=== PATIENT | female | born 1990 | race Hispanic/Latino ===

== ENCOUNTER 2017-11-26 19:05 | Emergency (ER) | payer OTHER ==
[2017-11-26 20:55] LABS: Absolute Lymphocytes (CBC) 1.8 K/uL (0.7-4.9); Absolute Monocytes 0.8 K/uL (0.1-1.3); Absolute Neutrophil 7.8 K/uL (1.8-8.0); Basophils % 0.5 % (0-1.3); Eosinophils % 2.2 % (0-4.4); Hematocrit 40.7 % (36.0-45.0); MCH 32.9 pg (27.0-35.0); MCV 95.9 fL (80-100); MPV 7.5 fL (7.6-11.3); Monocytes % 7.1 % (3.3-12.3); RBC Red Blood Cell Count 4.24 M/uL (3.86-4.86)
[2017-11-26 20:57] LABS: Protime INR 1.04
[2017-11-26 21:32] LABS: Barbiturates NEGATIVE (NEGATIVE); Benzodiazepines NEGATIVE (NEGATIVE); Cocaine NEGATIVE (NEGATIVE); METHAMPHETAM NEGATIVE (NEGATIVE); Methadone NEGATIVE (NEGATIVE); Opiates NEGATIVE (NEGATIVE); Phencyclidine NEGATIVE (NEGATIVE); THC Cannibis NEGATIVE (NEGATIVE)
[2017-11-26 21:48] LABS: ALT/SGPT 21 U/L (12-78); AST/SGOT 11 U/L (15-37); Albumin 3.8 g/dL (3.4-5.0); Alcohol Serum/Plasma 8 mg/dL (<3); Alkaline Phosphatase 59 U/L (45-117); BUN Blood Urea Nitrogen 13 mg/dL (7-18); Bicarbonate 25 mmol/L (21-32); Bilirubin Direct < 0.1 mg/dL (0-0.2); Bilirubin Total 0.3 mg/dL (0.2-1.0); Glucose Level 113 mg/dL (74-106); Potassium 3.6 mmol/L (3.5-5.1); Protein, Total 8.4 g/dL (6.4-8.2); Sodium Level 141 mmol/L (136-145)
[2017-11-26 22:11] LABS: Urine Blood 3+ (NEG); Urine Glucose NEGATIVE (NEG); Urine Protein 1+ (NEG); Urine Specific Gravity >1.030 (1.005-1.030); Urine pH 5.5 (5.0-7.0)
--- NOTE | 2017-11-27 00:30 | ER ---
Nurse's Notes [facility] Name: Dawn Aquino Age: 27 yrs Sex: Female : 1990 Arrival Date: 11/26/2017 Time: 19:09 Bed 16 Private MD: Diagnosis: Depression Presentation: 11/26 19:20 Presenting complaint: Patient states: "I went to see my therapist today and she said I aj1 have a lot of anxiety and I've been having really bad and dark thoughts that started on Wednesday. I'm having suicidal thoughts, they're less today but they're still there. I used to take Prozac so I think I just need that" Denies a plan at this time. Transition of care: patient was not received from another setting of care. Onset of symptoms was November 26, 2017. Risk Assessment: Do you want to hurt yourself or someone else? Patient reports desire/thoughts of hurting themselves or someone else. Provider notified. Initial Sepsis Screen: Does the patient meet any 2 criteria? No. Patient's initial sepsis screen is negative. Does the patient have a suspected source of infection? No. Patient's initial sepsis screen is negative. Care prior to arrival: None. 19:20 Method Of Arrival: Ambulatory aj1 19:20 Acuity: GABY 2 aj1 Triage Assessment: 19:26 General: Appears in no apparent distress. comfortable, Behavior is cooperative, aj1 anxious. Pain: Complains of pain in right taoist and left taoist Pain currently is 5 out of 10 on a pain scale. Neuro: Level of Consciousness is awake, alert, obeys commands. Cardiovascular: Patient's skin is warm and dry. Respiratory: Airway is patent Respiratory effort is even, unlabored, Respiratory pattern is regular, symmetrical. Derm: Skin is pink, warm \\T\\ dry. normal. 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 - Social history:: Smoking status: Patient/guardian denies using tobacco. - Ebola Screening: : Patient denies travel to an Ebola-affected area in the 21 days before illness onset. Screenin:45 Abuse screen: Denies threats or abuse. Denies injuries from another. Nutritional bp screening: No deficits noted. Tuberculosis screening: No symptoms or risk factors identified. Fall Risk None identified. Assessment: 19:45 General: Appears in no apparent distress. comfortable, Behavior is cooperative, bp appropriate for age, anxious. General: 27YO HF P/W CHRONIC INTERMITTENT SUICIDAL IDEATION, DIRECTED TO ER BY PERSONAL THERAPIST. PT DENIES PLAN OR GESTURE. Pain: Denies pain. Neuro: Level of Consciousness is awake, alert, obeys commands, Oriented to person, place, time, situation, Appropriate for age. Cardiovascular: No deficits noted. Respiratory: Airway is patent Respiratory effort is even, unlabored, Respiratory pattern is regular, symmetrical. GI: No signs and/or symptoms were reported involving the gastrointestinal system. : No signs and/or symptoms were reported regarding the genitourinary system. EENT: No deficits noted. Derm: No deficits noted. Musculoskeletal: Circulation, motion, and sensation intact. Range of motion: intact in all extremities. 23:30 Reassessment: PT MEDICALLY CLEAR. FAMILY AND SITTER AT B/S. [facility] ER EVAL PENDING. bp 11/27 00:51 Reassessment: PT CLEARED FOR D/C AND OUTPATIENT THERAPY, D/C ON HOLD FOR FURTHER MEDS. bp 01:15 Reassessment: PT D/C HOME AMBULATORY WITH FAMILY, DX WITH DEPRESSION, TO F/U WITH [facility]. Psych: 11/26 19:27 Subjective: Patient's mood is sad, Hallucinations are denied Having thoughts of aj1 suicide. Objective: Patient is cooperative, Speech is normal. Suicide Risk Assessment: Sad Person Scale: Sex of patient: Female: Score 0 points. Age of patient: Score 1 point if patient 15-34. Depression: Score 1 point if signs of depression are present. Previous Attempt: Score 0 point if patient has not previously attempted suicide. Substance Abuse: Score 0 point if patient does not abuse alcohol or drugs. Rational Thinking: Score 0 point if patient has rational thinking. Social Support: Score 0 if social support is present/available. Organized Plan: Score 0 if patient did not have an organized plan in place. Relationship: Score 0 point if patient has a spouse or domestic partner. Chronic Sickness: Score 0 point if patient does not have a chronic illness, debilitating, or severe disorder. TOTAL POINTS: If total points are 0-2, proposed clinical action is to send home with follow-up. Pt denies substance abuse. 19:45 Interventions: Removed personal items and placed in bag. Patient placed in hospital bp gown. Urine collected and sent for urine drug test. BELONGINGS TO FAMILY. 19:45 Commitment: NONE AT THIS TIME. bp Vital Signs: 19:26 BP 143 / 94; Pulse 112; Resp 20; Temp 98.1; Pulse Ox 97% on R/A; Weight 80.74 kg (R); aj1 Height 5 ft. 2 in. (157.48 cm) (R); 23:48 BP 123 / 77; Pulse 97; Resp 14; Pulse Ox 96% ; bp 19:26 Body Mass Index 32.56 (80.74 kg, 157.48 cm) aj1 ED Course: 19:09 Patient arrived in ED. as 19:24 Triage completed. aj1 19:26 Arm band placed on. aj1 19:31 Robert Gutierrez, MARY BETH is Primary Nurse. bp 19:32 Regina Linares FNP-C is PHCP. snw 19:32 Alhaji Weaver MD is Attending Physician. snw 19:45 Safety Checks: Personal items have been removed. The door is open or patient has been bp placed in a hallway bed/chair. A family member and/or friend is present and encouraged to stay. Sitter not present at this time Other: FAMILY TOOK POSSESSION OF PT BELONGINGS. 20:00 Safety Checks: Personal items have been removed. The door is open or patient has been bp placed in a hallway bed/chair. A family member and/or friend is present and encouraged to stay. Sitter not present at this time. 20:15 Safety Checks: Personal items have been removed. The door is open or patient has been bp placed in a hallway bed/chair. A family member and/or friend is present and encouraged to stay. 20:20 Inserted saline lock: 20 gauge in left forearm, using aseptic technique. Blood bp collected. 20:30 Safety Checks: Personal items have been removed. The door is open or patient has been bp placed in a hallway bed/chair. A family member and/or friend is present and encouraged to stay. Sitter present at this time. 20:44 Safety checks: Items removed: Door open/sign placed on door: Family/friend present: cs8 Sitter present:. Patient has correct armband on for positive identification. Allergy band placed. Fall risk band placed. Placed in gown. Bed in low position. Call light in reach. Side rails up X 1. 20:45 Safety Checks: Personal items have been removed. The door is open or patient has been bp placed in a hallway bed/chair. A family member and/or friend is present and encouraged to stay. Sitter present at this time. 21:00 Safety Checks: Personal items have been removed. The door is open or patient has been bp placed in a hallway bed/chair. A family member and/or friend is present and encouraged to stay. Sitter present at this time. 21:05 Safety checks: Items removed: Door open/sign placed on door: yes. Family/friend cs8 present: yes. Sitter present: Yes. Patient has correct armband on for positive identification. Allergy band placed. Fall risk band placed. Placed in gown. Bed in low position. Side rails up X 1. Sitter at bedside. 21:15 Safety Checks: Personal items have been removed. The door is open or patient has been bp placed in a hallway bed/chair. A family member and/or friend is present and encouraged to stay. Sitter present at this time. 21:15 Safety checks: Items removed: yes. Door open/sign placed on door: yes. Family/friend cs8 present: yes. Sitter present: Yes. Patient has correct armband on for positive identification. Allergy band placed. Fall risk band placed. Placed in gown. Bed in low position. Side rails up X 1. Sitter at bedside. 21:30 Safety Checks: Personal items have been removed. The door is open or patient has been bp placed in a hallway bed/chair. A family member and/or friend is present and encouraged to stay. Sitter present at this time. 21:33 Safety checks: Items removed: yes. Door open/sign placed on door: yes. Family/friend cs8 present: yes. Sitter present:. Patient has correct armband on for positive identification. Allergy band placed. Fall risk band placed. Placed in gown. Bed in low position. Side rails up X 1. 21:45 Safety Checks: Personal items have been removed. The door is open or patient has been bp placed in a hallway bed/chair. A family member and/or friend is present and encouraged to stay. Sitter present at this time. 21:45 Safety checks: Items removed: yes. Door open/sign placed on door: yes. Family/friend cs8 present: no. Sitter present: Yes. Patient has correct armband on for positive identification. Placed in gown. Bed in low position. Side rails up X 1. Diet: Patient given snack. Tolerated well. 22:00 Safety Checks: Personal items have been removed. The door is open or patient has been bp placed in a hallway bed/chair. A family member and/or friend is present and encouraged to stay. Sitter present at this time. 22:00 Safety checks: Items removed: yes. Door open/sign placed on door: yes. Sitter present: cs8 Yes. Patient has correct armband on for positive identification. 22:15 Safety Checks: Personal items have been removed. The door is open or patient has been bp placed in a hallway bed/chair. A family member and/or friend is present and encouraged to stay. Sitter present at this time. 22:15 Safety checks: Items removed: yes. Door open/sign placed on door: yes. Sitter present: cs8 Yes. Patient has correct armband on for positive identification. Placed in gown. Bed in low position. Side rails up X 1. Sitter at bedside. 22:30 Safety Checks: Personal items have been removed. The door is open or patient has been bp placed in a hallway bed/chair. A family member and/or friend is present and encouraged to stay. Sitter present at this time. 22:30 Safety checks: Items removed: yes. Door open/sign placed on door: yes. Sitter present: cs8 Yes. Patient has correct armband on for positive identification. Placed in gown. Bed in low position. Side rails up X 1. 22:45 Safety Checks: Personal items have been removed. The door is open or patient has been bp placed in a hallway bed/chair. A family member and/or friend is present and encouraged to stay. Sitter present at this time. 22:45 Safety checks: Items removed: yes. Door open/sign placed on door: yes. Sitter present: cs8 Yes. Patient has correct armband on for positive identification. Placed in gown. Bed in low position. Side rails up X 1. pt lying in bed resting, no further needs. 23:00 Safety Checks: Personal items have been removed. The door is open or patient has been bp placed in a hallway bed/chair. A family member and/or friend is present and encouraged to stay. Sitter present at this time. 23:00 Safety checks: Items removed: yes. Door open/sign placed on door: yes. Sitter present: cs8 Yes. Patient has correct armband on for positive identification. Placed in gown. Bed in low position. Call light in reach. pt. lying in bed resting, no further needs at this time. 23:15 Safety Checks: Personal items have been removed. The door is open or patient has been bp placed in a hallway bed/chair. A family member and/or friend is present and encouraged to stay. Sitter present at this time. 23:15 Safety checks: Items removed: yes. Door open/sign placed on door: yes. Family/friend cs8 present: no. Sitter present: Yes. Patient has correct armband on for positive identification. Bed in low position. Call light in reach. Side rails up X 1. 23:30 Safety Checks: Personal items have been removed. The door is open or patient has been bp placed in a hallway bed/chair. A family member and/or friend is present and encouraged to stay. Sitter present at this time. 23:30 Safety checks: Items removed: yes. Door open/sign placed on door: yes. Family/friend cs8 present: yes. Sitter present:. Patient has correct armband on for positive identification. Placed in gown. Bed in low position. Side rails up X 1. 23:45 Safety Checks: Personal items have been removed. The door is open or patient has been bp placed in a hallway bed/chair. A family member and/or friend is present and encouraged to stay. Sitter present at this time. 23:45 Safety checks: Items removed: yes. Door open/sign placed on door: yes. Family/friend cs8 present: yes. Sitter present: Yes. Patient has correct armband on for positive identification. Placed in gown. Bed in low position. Side rails up X 1. 11/27 00:00 Safety Checks: Personal items have been removed. The door is open or patient has been bp placed in a hallway bed/chair. A family member and/or friend is present and encouraged to stay. Sitter present at this time. 00:00 Safety checks: Items removed: yes. Door open/sign placed on door: yes. Sitter present: cs8 Yes. Patient has correct armband on for positive identification. Placed in gown. Bed in low position. Side rails up X 1. Lights dimmed. vital signs taken. 00:15 Safety Checks: Personal items have been removed. The door is open or patient has been bp placed in a hallway bed/chair. A family member and/or friend is present and encouraged to stay. Sitter present at this time. 00:15 Safety checks: Items removed: yes. Door open/sign placed on door: yes. Sitter present: cs8 Yes. Patient has correct armband on for positive identification. Placed in gown. Bed in low position. Side rails up X 1. Lights dimmed. Warm blanket given. Pillow given. 00:30 Safety Checks: Personal items have been removed. The door is open or patient has been bp placed in a hallway bed/chair. A family member and/or friend is present and encouraged to stay. Sitter present at this time. 00:30 Safety checks: Items removed: yes. Door open/sign placed on door: yes. Family/friend cs8 present: yes. Sitter present: Yes. Patient has correct armband on for positive identification. Placed in gown. Bed in low position. Side rails up X 1. 00:45 Safety Checks: Personal items have been removed. The door is open or patient has been bp placed in a hallway bed/chair. A family member and/or friend is present and encouraged to stay. Sitter present at this time. 00:45 Safety checks: Items removed: yes. Door open/sign placed on door: yes. Family/friend cs8 present: yes. Sitter present: Yes. Patient has correct armband on for positive identification. Placed in gown. Bed in low position. Side rails up X 1. 01:00 Safety Checks: Personal items have been removed. The door is open or patient has been bp placed in a hallway bed/chair. A family member and/or friend is present and encouraged to stay. Sitter present at this time. 01:00 Safety checks: Items removed: yes. Door open/sign placed on door: yes. Family/friend cs8 present: yes. Sitter present: Yes. Other: patient waiting for meds so she can be discharged. 01:15 Safety Checks: Personal items have been removed. The door is open or patient has been bp placed in a hallway bed/chair. A family member and/or friend is present and encouraged to stay. Sitter present at this time. 01:29 No provider procedures requiring assistance completed. IV discontinued, intact, bp bleeding controlled, No redness/swelling at site. Pressure dressing applied. Administered Medications: 01:15 Drug: PROzac 10 mg Route: PO; bp 01:28 Follow up: Response: Medication administered at discharge. bp 01:15 Drug: Tylenol 1000 mg Route: PO; bp 01:28 Follow up: Response: Medication administered at discharge. bp Outcome: 00:29 Discharge ordered by . edgar 01:29 Discharged to home ambulatory, with family. bp 01:29 Condition: stable 01:29 Discharge instructions given to patient, family, Instructed on discharge instructions, follow up and referral plans. medication usage, Demonstrated understanding of instructions, follow-up care, medications, Prescriptions given X 1. 01:34 Patient left the ED. bp Signatures: Mary Ann Salazar RN RN aj1 Alhaji Weaver MD MD pkl Therrien, Shelly, CHIP MIXING MACHINE OPERATOR-C CHIP MIXING MACHINE OPERATOR-Kerri Childs Brian, RN RN bp Yulisa Buchanan cs8 Corrections: (The following items were deleted from the chart) 11/26 21:20 19:20 Risk Assessment: Do you want to hurt yourself or someone else? Patient reports no aj1 desire to harm self or others. aj1 21:33 19:45 Safety Checks: Personal items have been removed. The door is open or patient has bp been placed in a hallway bed/chair. A family member and/or friend is present and encouraged to stay. Sitter not present at this time bp
--- NOTE | 2017-11-27 00:30 | EDPHYS ---
Physician Documentation [facility] Name: Dawn Aquino Age: 27 yrs Sex: Female : 1990 Arrival Date: 11/26/2017 Time: 19:09 Bed 16 Private MD: ED Physician Alhaji Weaver HPI: 11/26 22:11 This 27 yrs old Female presents to ER via Ambulatory with complaints of snw Suicidal Ideation, Anxiety, Depression. 22:11 The patient presents to the emergency department with depression, suicide ideation, but snw the patient has no formulated plan. Onset: The symptoms/episode began/occurred suddenly, 1 week(s) ago, and became worse today. Past psychiatric history: Prior diagnosis: depression, Psychiatric medications include: Prozac, the patient has not had a prior suicide gesture, the patient does not have a previous inpatient psychiatric history, the patient's last psychiatric treatment was 1 year(s) ago. Associated signs and symptoms: Pertinent positives; sadness, wants help because everything went south so suddenly. States something on the internet set her off.. The patient has not experienced similar symptoms in the past. The patient has not recently seen a physician. Saw Dr. Gomes for similar symptoms one year ago, took Prozac x 5 months with some improvement. 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 - Social history:: Smoking status: Patient/guardian denies using tobacco. - Ebola Screening: : Patient denies travel to an Ebola-affected area in the 21 days before illness onset. ROS: 22:11 Eyes: Negative for injury, pain, redness, and discharge, ENT: Negative for injury, snw pain, and discharge, Neck: Negative for injury, pain, and swelling, Cardiovascular: Negative for chest pain, palpitations, and edema, Respiratory: Negative for shortness of breath, cough, wheezing, and pleuritic chest pain, Abdomen/GI: Negative for abdominal pain, nausea, vomiting, diarrhea, and constipation, Back: Negative for injury and pain, : Negative for injury, bleeding, discharge, and swelling, MS/Extremity: Negative for injury and deformity, Skin: Negative for injury, rash, and discoloration, Neuro: Negative for headache, weakness, numbness, tingling, and seizure. 22:11 Constitutional: Positive for malaise. 22:11 Psych: Positive for depression, suicidal ideation. Exam: 22:11 Constitutional: This is a well developed, well nourished patient who is awake, alert, snw and in no acute distress. Head/Face: Normocephalic, atraumatic. Eyes: Pupils equal round and reactive to light, extra-ocular motions intact. Lids and lashes normal. Conjunctiva and sclera are non-icteric and not injected. Cornea within normal limits. Periorbital areas with no swelling, redness, or edema. ENT: Nares patent. No nasal discharge, no septal abnormalities noted. Tympanic membranes are normal and external auditory canals are clear. Oropharynx with no redness, swelling, or masses, exudates, or evidence of obstruction, uvula midline. Mucous membranes moist. Neck: Trachea midline, no thyromegaly or masses palpated, and no cervical lymphadenopathy. Supple, full range of motion without nuchal rigidity, or vertebral point tenderness. No Meningismus. Chest/axilla: Normal chest wall appearance and motion. Nontender with no deformity. No lesions are appreciated. Cardiovascular: Regular rate and rhythm with a normal S1 and S2. No gallops, murmurs, or rubs. Normal PMI, no JVD. No pulse deficits. Respiratory: Lungs have equal breath sounds bilaterally, clear to auscultation and percussion. No rales, rhonchi or wheezes noted. No increased work of breathing, no retractions or nasal flaring. Abdomen/GI: Soft, non-tender, with normal bowel sounds. No distension or tympany. No guarding or rebound. No evidence of tenderness throughout. Back: No spinal tenderness. No costovertebral tenderness. Full range of motion. Skin: Warm, dry with normal turgor. Normal color with no rashes, no lesions, and no evidence of cellulitis. MS/ Extremity: Pulses equal, no cyanosis. Neurovascular intact. Full, normal range of motion. Neuro: Awake and alert, GCS 15, oriented to person, place, time, and situation. Cranial nerves II-XII grossly intact. Motor strength 5/5 in all extremities. Sensory grossly intact. Cerebellar exam normal. Normal gait. 22:11 Psych: Behavior/mood is pleasant, cooperative, depressed, appropriate for age, Affect is calm, Oriented to person, place, time, Patient having thoughts of suicide. Denies suicidal plan. Judgement / Insight is normal. Delusions/hallucinations are not present. Vital Signs: 19:26 BP 143 / 94; Pulse 112; Resp 20; Temp 98.1; Pulse Ox 97% on R/A; Weight 80.74 kg (R); aj1 Height 5 ft. 2 in. (157.48 cm) (R); 23:48 BP 123 / 77; Pulse 97; Resp 14; Pulse Ox 96% ; bp 19:26 Body Mass Index 32.56 (80.74 kg, 157.48 cm) aj1 MDM: 19:35 Patient medically screened. snw 22:32 Data reviewed: vital signs, nurses notes. Data interpreted: Pulse oximetry: on room air snw is 97 %. Interpretation: normal. Counseling: I had a detailed discussion with the patient and/or guardian regarding: the historical points, exam findings, and any diagnostic results supporting the discharge/admit diagnosis, the presence of at least one elevated blood pressure reading (>120/80) during this emergency department visit, lab results. Awaiting: Psychiatric tractor distributor Boris Booth. 22:33 ED course: Pt tearful in intervals, supportive family at bedside. snw 22:34 Transition of care: After a detail discussion of the patient's case, care is snw transferred to Alhaij Weaver MD. 11/27 00:30 ED course: Patient evaluated by [facility] screener. Arrangement made for [facility] outpatient follow up.. 11/26 19:33 Order name: Acetaminophen; Complete Time: 22:49 snw 11/26 19:33 Order name: Basic Metabolic Panel; Complete Time: 22:49 snw 11/26 19:33 Order name: CBC with Diff; Complete Time: 21:06 snw 11/26 19:33 Order name: ETOH Level; Complete Time: 22:49 snw 11/26 19:33 Order name: Hepatic Function; Complete Time: 22:49 snw 11/26 19:33 Order name: PT-INR; Complete Time: 21:06 snw 11/26 19:33 Order name: Ptt, Activated; Complete Time: 21:06 snw 11/26 19:33 Order name: Salicylate; Complete Time: 21:34 snw 11/26 19:33 Order name: Urine Drug Screen; Complete Time: 21:34 snw 11/26 19:33 Order name: EKG; Complete Time: 19:33 snw 11/26 20:41 Order name: Urine Dipstick--Ancillary (enter results); Complete Time: 22:17 ms 11/26 20:41 Order name: Urine --Ancillary (enter results); Complete Time: 22:17 ms 11/26 19:33 Order name: Urine Test (obtain specimen); Complete Time: 20:40 snw 11/26 19:33 Order name: EKG - Nurse/Tech; Complete Time: 20:18 snw 11/26 19:33 Order name: IV Saline Lock; Complete Time: 20:40 snw 11/26 19:33 Order name: Labs collected and sent; Complete Time: 20:39 snw 11/26 19:33 Order name: Urine Dipstick-Ancillary (obtain specimen); Complete Time: 20:39 snw Administered Medications: 01:15 Drug: PROzac 10 mg Route: PO; bp 01:28 Follow up: Response: Medication administered at discharge. bp 01:15 Drug: Tylenol 1000 mg Route: PO; bp 01:28 Follow up: Response: Medication administered at discharge. bp Disposition: 00:28 Co-signature as Attending Physician, Alhaji Weaver MD. pksander Disposition: 11/27/17 00:29 Discharged to Home. Impression: Depression. - Condition is Stable. - Prescriptions for Prozac 10 mg Oral Capsule - take 1 capsule by ORAL route once daily; 30 capsule. - Medication Reconciliation Form, Thank You Letter, Antibiotic Education, Prescription Opioid Use form. - Follow up: Private Physician; When: 2 - 3 days; Reason: Re-evaluation by your physician. - Problem is new. - Symptoms have improved. Signatures: Dispatcher [employer] Mary Ann Flores RN RN aj1 Alhaji Weaver MD MD pkl Regina Linares, GREEN LUMBER GRADER-C GREEN LUMBER GRADER-Csnw Robert Gutierrez, RN RN bp Corrections: (The following items were deleted from the chart) 01:34 00:29 11/27/2017 00:29 Discharged to Home. Impression: Depression. Condition is Stable. bp Forms are Medication Reconciliation Form, Thank You Letter, Antibiotic Education, Prescription Opioid Use. Follow up: Private Physician; When: 2 - 3 days; Reason: Re-evaluation by your physician. Problem is new. Symptoms have improved. pkl
[2017-11-27] MEDS ORDERED: FLUOXETINE 10 MG CAP ONE (01:12)
[2017-11-27] MEDS ORDERED: ACETAMINOPHEN 500 MG TAB ONE (01:13)
--- NOTE | 2017-11-27 07:17 | EKG ---
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
== END 2017-11-27 01:34 | disposition home or self-care (01) ==
LOC: ER 19:05
DX: F32.9 Major depressive disorder, single episode, unspecified (principal)
CPT/HCPCS: 36415; 80048; 80076; 80307; 80320; 80329; 81003; 81025; 85025; 85610; 85730; 93005; 99284